=== PATIENT | female | born 1930 | race African-American/Black ===

== ENCOUNTER 2020-08-21 14:36 | Inpatient (IN) | payer MEDICARE, OTHER ==
[2020-08-21 14:40] VITALS: BMI 18.5
[2020-08-21] MEDS ORDERED: Senokot S 8.6-50 MG TAB PO PRN (14:49)
[2020-08-21] MEDS ORDERED: hydrALAZINE 20 MG/ML VIAL SLOW IVP PRN (14:49)
[2020-08-21] MEDS ORDERED: Ondansetron ODT 4 MG TAB PO PRN (14:49)
[2020-08-21] MEDS ORDERED: Loratadine 10 MG TAB PO PRN (14:49)
[2020-08-21] MEDS ORDERED: Loperamide HCl 2 MG CAP PO PRN (14:49)
[2020-08-21] MEDS ORDERED: Bisacodyl 10 MG SUPP PR PRN (14:49)
[2020-08-21] MEDS ORDERED: Ondansetron PF 4 MG/2 ML Vial IVP PRN (14:49)
[2020-08-21] MEDS ORDERED: Eucerin (Mineral Oil/Petrolatum,White) 30 gm Jar TOP PRN (14:49)
[2020-08-21] MEDS ORDERED: Guaifenesin DM 100-10/5 ML UDCUP PO PRN (14:49)
[2020-08-21] MEDS ORDERED: HYDROcodone/Acetaminophen 5/325 mg Tablet PO PRN (14:49)
[2020-08-21] MEDS ORDERED: Sodium Chloride 0.65% Nasal 44 ML BOT EA NARE PRN (14:49)
[2020-08-21] MEDS ORDERED: Zolpidem Tartrate 5 MG TAB PO PRN (14:49)
[2020-08-21] MEDS ORDERED: Cepastat Lozenges 1 LOZ PO PRN (14:49)
[2020-08-21] MEDS ORDERED: Acetaminophen 325 MG TAB PO PRN (14:49)
[2020-08-21] MEDS ORDERED: Sodium Chloride 0.9% 1,000 ML IV SCH (15:00)
[2020-08-21] MEDS: metroNIDAZOLE 500 MG in Premix Bag 1 BAG IVPB SCH (21:23)
[2020-08-22 02:31] LABS: SARS-CoV-2 PCR by NAA Not Detected (NotDetected)
[2020-08-22] MEDS: metroNIDAZOLE 500 MG in Premix Bag 1 BAG IVPB SCH ×3 (05:17→21:27)
[2020-08-22 06:15] LABS: Lactic Acid 1.1 mmol/L (0.5-2.2)
[2020-08-22 06:21] LABS: Hemoglobin 11.1 g/dL (12.0-15.5); Mean Corpuscular Hemoglobin 30.5 pg (27.0-33.0); Mean Corpuscular Volume 95.3 fl (81.6-98.3); Platelet Count 229 10x3/uL (150-450); RBC Distribution Width 15.9 % (11.5-14.5); Red Blood Cell (RBC) Count 3.64 10x6/uL (3.90-5.03); White Blood Cell (WBC) Count 18.5 10x3/uL (3.5-10.5)
[2020-08-22 06:22] LABS: ALT (SGPT) 13 U/L (8-55); AST (SGOT) 16 U/L (5-34); Albumin 3.2 g/dL (3.4-4.8); Alkaline Phosphatase 119 U/L (40-110); Anion Gap 14 mmol/L (10-20); BUN (Urea Nitrogen) Less than 4 mg/dL (9.8-20.1); Bilirubin, Total 0.3 mg/dL (0.2-1.2); Calc. Creatinine Clearance 47 mL/min (70-130); Calcium 8.3 mg/dL (7.8-10.44); Carbon Dioxide 23 mmol/L (23-31); Chloride 107 mmol/L (98-107); Globulin 2.8 g/dL (2.4-3.5); Glucose 75 mg/dL (83-110); Potassium 3.4 mmol/L (3.5-5.1); Sodium 141 mmol/L (136-145)
[2020-08-22 06:58] LABS: Band 12 % (5-11); Lymphocytes 40 % (21-51); Monocytes 5 % (0-10); Neutrophil 34 % (42-75); Reactive Lymphocytes 9 % (0-10)
[2020-08-22 06:59] LABS: Platelet Clumps SLIGHT; Platelet Morphology Comment Appears Adequate
[2020-08-22 07:00] LABS: MDiff Complete? YES; Manual Diff?? YES
[2020-08-22 07:01] LABS: RBC Morphology Normal
[2020-08-22] MEDS ORDERED: Potassium Chloride 20 MEQ TAB PO SCH (07:30)
[2020-08-22] MEDS: 1/2 NS w/KCL 20 mEq 1,000 ML IV SCH ×2 (09:22→20:08)
[2020-08-22] MEDS: Vancomycin HCl 25 MG/ML Oral PO SCH ×3 (09:23→20:07)
[2020-08-22] MEDS: Saccharomyces boulardii 250 MG CAP PO SCH (09:24)
[2020-08-22] MEDS: Cyclobenzaprine 10 MG TAB PO SCH ×3 (09:24→20:07)
[2020-08-22] MEDS: Aspirin 81 mg Enteric Coated Tablet PO SCH (09:24)
[2020-08-22] MEDS: Multivit, Therapeutic 1 TAB PO SCH (09:24)
[2020-08-22] MEDS: Atorvastatin Calcium 40 MG TAB PO SCH (09:24)
[2020-08-22] MEDS: Enoxaparin Sodium 40 MG/0.4 ML SYRINGE SC SCH (09:25)
[2020-08-22] MEDS: Calcium Carbonate 500 MG ChewTAB PO PRN (20:07)
[2020-08-23] MEDS: Vancomycin HCl 25 MG/ML Oral PO SCH ×4 (03:16→20:02)
[2020-08-23] MEDS: metroNIDAZOLE 500 MG in Premix Bag 1 BAG IVPB SCH ×3 (05:11→21:04)
[2020-08-23 06:15] LABS: Hemoglobin 12.3 g/dL (12.0-15.5); Mean Corpuscular HGB CONC 32.4 g/dL (32.0-36.0); Mean Corpuscular Hemoglobin 30.2 pg (27.0-33.0); Mean Corpuscular Volume 93.4 fl (81.6-98.3); Platelet Count 261 10x3/uL (150-450); Red Blood Cell (RBC) Count 4.07 10x6/uL (3.90-5.03); White Blood Cell (WBC) Count 19.4 10x3/uL (3.5-10.5)
[2020-08-23 06:44] LABS: Anion Gap 13 mmol/L (10-20); BUN (Urea Nitrogen) 4 mg/dL (9.8-20.1); Calc. Creatinine Clearance 44 mL/min (70-130); Calcium 9.4 mg/dL (7.8-10.44); Carbon Dioxide 27 mmol/L (23-31); Chloride 106 mmol/L (98-107); Glucose 94 mg/dL (83-110); Phosphorus 2.2 mg/dL (2.3-4.7); Potassium 4.3 mmol/L (3.5-5.1); Sodium 142 mmol/L (136-145)
[2020-08-23 06:56] LABS: Band 8 % (5-11); Lymphocytes 37 % (21-51); Monocytes 3 % (0-10); Neutrophil 35 % (42-75); Reactive Lymphocytes 17 % (0-10)
[2020-08-23 06:57] LABS: Anisocytosis SLIGHT = 6-15 cells (100X) (0-5/hpf); Microcytosis SLIGHT = 6-15 cells (100X) (0-5/hpf); Toxic Granulation SLIGHT
[2020-08-23 06:58] LABS: Platelet Clumps SLIGHT
[2020-08-23 06:59] LABS: MDiff Complete? YES; Manual Diff?? YES; Platelet Morphology Comment Appears Adequate
[2020-08-23] MEDS ORDERED: PHOS-NAK 1 PKT PACK PO SCH (09:00)
[2020-08-23] MEDS: Enoxaparin Sodium 40 MG/0.4 ML SYRINGE SC SCH (09:36)
[2020-08-23] MEDS: Cyclobenzaprine 10 MG TAB PO SCH ×3 (09:37→20:02)
[2020-08-23] MEDS: Multivit, Therapeutic 1 TAB PO SCH (09:37)
[2020-08-23] MEDS: Atorvastatin Calcium 40 MG TAB PO SCH (09:37)
[2020-08-23] MEDS: Saccharomyces boulardii 250 MG CAP PO SCH (09:37)
[2020-08-23] MEDS: Aspirin 81 mg Enteric Coated Tablet PO SCH (09:37)
[2020-08-23] MEDS: Calcium Carbonate 500 MG ChewTAB PO PRN (20:02)
[2020-08-24] MEDS: Vancomycin HCl 25 MG/ML Oral PO SCH ×4 (03:50→20:32)
[2020-08-24] MEDS: metroNIDAZOLE 500 MG in Premix Bag 1 BAG IVPB SCH ×3 (05:28→21:11)
[2020-08-24] MEDS: Multivit, Therapeutic 1 TAB PO SCH (08:00)
[2020-08-24] MEDS: Aspirin 81 mg Enteric Coated Tablet PO SCH (08:00)
[2020-08-24] MEDS: Enoxaparin Sodium 40 MG/0.4 ML SYRINGE SC SCH (08:00)
[2020-08-24] MEDS: Saccharomyces boulardii 250 MG CAP PO SCH (08:00)
[2020-08-24] MEDS: Cyclobenzaprine 10 MG TAB PO SCH ×3 (08:00→20:32)
[2020-08-24] MEDS: Atorvastatin Calcium 40 MG TAB PO SCH (08:00)
[2020-08-25] MEDS: Vancomycin HCl 25 MG/ML Oral PO SCH ×4 (02:58→20:56)
[2020-08-25 06:52] LABS: Anion Gap 16 mmol/L (10-20); BUN (Urea Nitrogen) 5 mg/dL (9.8-20.1); Calc. Creatinine Clearance 43 mL/min (70-130); Calcium 9.3 mg/dL (7.8-10.44); Carbon Dioxide 24 mmol/L (23-31); Chloride 104 mmol/L (98-107); Glucose 115 mg/dL (83-110); Potassium 3.9 mmol/L (3.5-5.1); Sodium 140 mmol/L (136-145)
[2020-08-25] MEDS: metroNIDAZOLE 500 MG in Premix Bag 1 BAG IVPB SCH ×3 (06:55→21:03)
[2020-08-25 07:19] LABS: Hemoglobin 13.4 g/dL (12.0-15.5); Mean Corpuscular HGB CONC 33.2 g/dL (32.0-36.0); Mean Corpuscular Hemoglobin 30.6 pg (27.0-33.0); Mean Corpuscular Volume 92.2 fl (81.6-98.3); Mean Platelet Volume 9.9 fl (7.4-10.4); Platelet Count 240 10x3/uL (150-450); RBC Distribution Width 16.1 % (11.5-14.5); Red Blood Cell (RBC) Count 4.38 10x6/uL (3.90-5.03); White Blood Cell (WBC) Count 24.4 10x3/uL (3.5-10.5)
[2020-08-25 08:35] LABS: Eosinophils 1 % (0-10); Lymphocytes 58 % (21-51); Monocytes 1 % (0-10); Neutrophil 32 % (42-75); Reactive Lymphocytes 7 % (0-10)
[2020-08-25 08:37] LABS: MDiff Complete? YES; Reflex for Review?? YES
[2020-08-25 08:38] LABS: Large Platelets SLIGHT; Platelet Morphology Comment Appears Adequate
[2020-08-25 08:39] LABS: RBC Morphology Normal
[2020-08-25] MEDS: Multivit, Therapeutic 1 TAB PO SCH (09:25)
[2020-08-25] MEDS: Cyclobenzaprine 10 MG TAB PO SCH ×3 (09:25→20:55)
[2020-08-25] MEDS: Aspirin 81 mg Enteric Coated Tablet PO SCH (09:25)
[2020-08-25] MEDS: Saccharomyces boulardii 250 MG CAP PO SCH (09:25)
[2020-08-25] MEDS: Atorvastatin Calcium 40 MG TAB PO SCH (09:26)
[2020-08-25] MEDS: Enoxaparin Sodium 40 MG/0.4 ML SYRINGE SC SCH (09:26)
[2020-08-26] MEDS: Vancomycin HCl 25 MG/ML Oral PO SCH ×2 (02:20→09:03)
[2020-08-26] MEDS: metroNIDAZOLE 500 MG in Premix Bag 1 BAG IVPB SCH (05:49)
[2020-08-26 06:13] LABS: Hemoglobin 12.4 g/dL (12.0-15.5); Mean Corpuscular HGB CONC 32.6 g/dL (32.0-36.0); Mean Corpuscular Hemoglobin 30.3 pg (27.0-33.0); Mean Corpuscular Volume 92.9 fl (81.6-98.3); Mean Platelet Volume 9.8 fl (7.4-10.4); Platelet Count 208 10x3/uL (150-450); Red Blood Cell (RBC) Count 4.09 10x6/uL (3.90-5.03); White Blood Cell (WBC) Count 24.5 10x3/uL (3.5-10.5)
[2020-08-26 07:43] LABS: MDiff Complete? YES
[2020-08-26 08:05] LABS: Eosinophils 1 % (0-10); Lymphocytes 43 % (21-51); Monocytes 6 % (0-10); Neutrophil 46 % (42-75); Reactive Lymphocytes 3 % (0-10)
[2020-08-26 08:19] LABS: Platelet Morphology Comment Appears Adequate
[2020-08-26 08:24] LABS: Large Platelets SLIGHT
[2020-08-26] MEDS: Multivit, Therapeutic 1 TAB PO SCH (09:02)
[2020-08-26] MEDS: Aspirin 81 mg Enteric Coated Tablet PO SCH (09:02)
[2020-08-26] MEDS: Atorvastatin Calcium 40 MG TAB PO SCH (09:02)
[2020-08-26] MEDS: Saccharomyces boulardii 250 MG CAP PO SCH (09:03)
[2020-08-26] MEDS: Cyclobenzaprine 10 MG TAB PO SCH (09:03)
[2020-08-26] MEDS: Enoxaparin Sodium 40 MG/0.4 ML SYRINGE SC SCH (09:11)
[2020-08-26 12:38] VITALS: BP 117/74; TEMP 98.7
== END 2020-08-26 14:08 | disposition home or self-care (01) | DRG 872 ==
LOC: CSHTELE 14:36
PROVIDERS: ADMIT Internal Medicine; ATTEND Internal Medicine
DX: A41.89 Other specified sepsis (principal); C91.10 Chronic lymphocytic leukemia of B-cell type not having achieved remission; A04.72 Enterocolitis due to Clostridium difficile, not specified as recurrent; Z20.822 Contact with and (suspected) exposure to COVID-19; N20.0 Calculus of kidney; J47.9 Bronchiectasis, uncomplicated; I10 Essential (primary) hypertension; I73.9 Peripheral vascular disease, unspecified; Z95.0 Presence of cardiac pacemaker; J44.9 Chronic obstructive pulmonary disease, unspecified; R91.1 Solitary pulmonary nodule; I25.10 Atherosclerotic heart disease of native coronary artery without angina pectoris; Z90.49 Acquired absence of other specified parts of digestive tract; Z88.1 Allergy status to other antibiotic agents; Z88.0 Allergy status to penicillin; Z79.82 Long term (current) use of aspirin; Z79.899 Other long term (current) drug therapy; E78.5 Hyperlipidemia, unspecified; M19.90 Unspecified osteoarthritis, unspecified site; E87.6 Hypokalemia
CPT/HCPCS: 36415; 80048; 80053; 83605; 83735; 84100; 85025; 85060; 87635; 94760; J0744; J1650; J3480; U0003; U0005